=== PATIENT | male | born 1990 | race African-American/Black ===

== ENCOUNTER 2018-01-29 15:12 | Emergency (ER) | payer MEDICAID ==
[~2018-01-29] VITALS: Ht 175.3 cm; Wt 107.0 kg
[2018-01-29 17:27] LABS: BASOPHILS % 0.4 % (0.0-2.0); EOSINOPHILS % 0.1 % (0.0-5.0); HEMATOCRIT. 42.1 % (42.0-52.0); HEMOGLOBIN. 14.2 g/dL (14.0-18.0); LYMPHOCYTES % 12.9 % (20.0-50.0); MEAN CORPUSCULAR HEMOGLOBIN 28.9 pg (28.0-32.0); MEAN CORPUSCULAR VOLUME 85.4 fL (80.0-94.0); MEAN PLATELET VOLUME 7.1 fl (7.4-10.4); MONOCYTES % 3.7 % (2.0-8.0); NEUTROPHILS % 82.9 % (40.0-76.0); PLATELET 345 x1000/uL (130-400); RED BLOOD CELL COUNT 4.93 mill/uL (4.7-6.1); RED CELL DISTRIBUTION WIDTH 13.2 % (11.6-14.6)
[2018-01-29 17:33] LABS: CHLORIDE 105 mEq/L (98-107); INR 1.1; PROTHROMBIN TIME 11.1 sec (9.4-11.6)
[2018-01-29 20:47] VITALS: BP 151/82
== END 2018-01-29 20:52 | disposition home or self-care (01) ==
LOC: ER 15:28
DX: R07.9 Chest pain, unspecified (principal)
CPT/HCPCS: 36415; 71045; 80053; 83880; 84484; 85025; 85610; 93005; 99285